=== PATIENT | female | born 1970 | race Caucasian/White ===

== ENCOUNTER 2021-12-13 13:20 | Emergency (ER) | payer BC, SELFPAY ==
[2021-12-13 13:30] VITALS: BP 115/62; PULSE 98; RESP 16; TEMP 35.9; O2SAT 98
--- NOTE | 2021-12-13 13:48 | ED.GENADULT ---
HPI - General Adult General Stated complaint: poison richard Time Seen by Provider: 12/13/21 13:48 Source: patient Mode of arrival: ambulatory Limitations: no limitations History of Present Illness HPI narrative: 51 y/o female presented for c/o poison sum[place] rash worsening over the past week. Endorses lesions disappear then flare up. They are scattered over arms and legs. Denies pain or drainage. Related Data Home Medications Medication Instructions Recorded Confirmed duloxetine 60 mg capsule,delayed mg PO 12/13/21 release ezetimibe 10 mg tablet mg 12/13/21 omeprazole 20 mg capsule,delayed mg 12/13/21 release pramipexole 1.5 mg tablet mg 12/13/21 Allergies Allergy/AdvReac Type Severity Reaction Status Date / Time fexofenadine Allergy Mild Unknown Verified 12/13/21 13:39 amoxicillin Allergy Unknown Unknown Verified 12/13/21 13:39 celecoxib Allergy Unknown Unknown Verified 12/13/21 13:39 clarithromycin Allergy Unknown Unknown Verified 12/13/21 13:39 clavulanic acid Allergy Unknown Unknown Verified 12/13/21 13:39 Review of Systems Review of Systems: CONSTITUTIONAL: Denies body aches, fever, chills, or sweats. EYES: Denies visual changes, redness, or discharge. ENT: Denies rhinorrhea, congestion CARDIOVASCULAR: Denies chest pain, palpitations, or edema. RESPIRATORY: Denies cough or dyspnea. GASTROINTESTINAL: Denies abdominal pain, nausea, vomiting, or diarrhea. SKIN: reports rash MUSCULOSKELETAL: Denies back pain, joint pain, or myalgia. NEUROLOGIC: Denies headache, numbness, tingling, or weakness. PMFSH Comments At time of signature, I have reviewed and agree with nursing past medical, surgical, social and family history unless otherwise noted. Please see nursing chart for further information. There is no relevant family history pertinent to the presenting complaint Exam Narrative: GENERAL: Well-appearing HEAD: Normocephalic, atraumatic. EYES: conjunctivae clear, and EOMI. ENT: Mucous membranes moist. Oropharynx without edema, erythema or lesions. NECK: Supple. No lymphadenopathy CHEST: Clear to auscultation. HEART: Regular rate and rhythm. SKIN: Warm, dry. Scattered red vesicular lesions to arms and legs, c/w contact dermatitis; no induration or fluctuance NEURO: Alert and oriented x3. Course Course Emergency Course: Patient is aware of diagnosis, understands and agrees to treatment plan. Anticipatory guidance given. Patient agrees to follow-up as directed and is aware of reasons to seek care at the emergency department. Portions of this record may have been created with voice recognition software Level of Care: Express Care Visit Vital Signs Vital signs: Vital Signs Temperature 96.7 F L 12/13/21 13:30 Pulse Rate 98 12/13/21 13:30 Respiratory Rate 16 12/13/21 13:30 Blood Pressure 115/62 12/13/21 13:30 Pulse Oximetry 98 12/13/21 13:30 Oxygen Delivery Room Air 12/13/21 13:30 Temperature 96.7 F L 12/13/21 13:30 Pulse Rate 98 12/13/21 13:30 Respiratory Rate 16 12/13/21 13:30 Blood Pressure 115/62 12/13/21 13:30 Pulse Oximetry 98 12/13/21 13:30 Oxygen Delivery Room Air 12/13/21 13:30 Reviewed Medical Decision Making MDM Narrative Medical decision making narrative: PE c/w contact dermatitis. Advised supportive measures and signs/symptoms to go to the ER. Pt is appropriate for outpt treatment and f/u. Instructed patient to go to nearest ER immediately for any worsening symptoms including but not limited to: fever, spreading rash, pain, sore throat, headache, dizziness, chest pain, trouble breathing, or any symptoms concerning to the patient. Differential Diagnosis Differential Diagnosis: viral exanthema, contact dermatitis, allergic dermatitis, eczema, urticaria Vital Signs Vital Signs: Vital Signs Temperature 96.7 F L 12/13/21 13:30 Pulse Rate 98 12/13/21 13:30 Respiratory Rate 16 12/13/21 13:30 Blood Pressure 115/62 09
== END 2021-12-13 13:55 | disposition home or self-care (01) ==
PROVIDERS: Emergency Provider Nurse Practitioner Family; PCP Internal Medicine
DX: L25.9 Unspecified contact dermatitis, unspecified cause (principal); E78.00 Pure hypercholesterolemia, unspecified; K21.9 Gastro-esophageal reflux disease without esophagitis; M79.7 Fibromyalgia
CPT/HCPCS: 99213; G0463

== ENCOUNTER 2023-10-12 10:26 | Outpatient (CLI) | payer OTHER, SELFPAY | END 2023-10-12 10:27 | disposition home or self-care (01) | LOC: ANHAUDASC 10:29 | PROVIDERS: PCP Internal Medicine | DX: H90.3 Sensorineural hearing loss, bilateral (principal) | CPT/HCPCS: 92557; 92567 ==